=== PATIENT | male | born 1960 | race African-American/Black ===

== ENCOUNTER 2017-10-26 14:13 | Emergency (ER) | payer MEDICARE, MEDICAID ==
[~2017-10-26] VITALS: Ht 193 cm; Wt 81.0 kg
[2017-10-26] MEDS ORDERED: IBUPROFEN 800MG TABLET PO ONE (15:00)
[2017-10-26 15:20] LABS: HEMOGLOBIN. 11.6 g/dL (14.0-18.0); MEAN CORPUSCULAR HEMOGLOBIN 28.2 pg (28.0-32.0); MEAN CORPUSCULAR VOLUME 84.9 fL (80.0-94.0); MEAN PLATELET VOLUME 8.1 fl (7.4-10.4); PLATELET 105 x1000/uL (130-400); RED BLOOD CELL COUNT 4.12 mill/uL (4.7-6.1); RED CELL DISTRIBUTION WIDTH 19.4 % (11.6-14.6)
[2017-10-26 15:23] LABS: CHLORIDE 101 mEq/L (98-107)
[2017-10-26 15:24] LABS: PARTIAL THROMBOPLASTIN TIME 29.9 sec (23.4-31.0); PROTHROMBIN TIME 10.9 sec (9.4-11.6)
[2017-10-26 15:27] LABS: ETHANOL BLOOD < 10 mg/dL
[2017-10-26 15:42] LABS: PLATELET ESTIMATE DECREASED
[2017-10-26] MEDS ORDERED: MORPHINE SULFATE 10 MG/ML CPJ IM ONE (16:15)
[2017-10-26 16:51] VITALS: BP 124/54
== END 2017-10-26 16:59 | disposition home or self-care (01) ==
LOC: ER 14:27
DX: R55 Syncope and collapse (principal); M54.2 Cervicalgia; G89.29 Other chronic pain; F43.20 Adjustment disorder, unspecified; I12.0 Hypertensive chronic kidney disease with stage 5 chronic kidney disease or end stage renal disease; N18.6 End stage renal disease; Z99.2 Dependence on renal dialysis
CPT/HCPCS: 36415; 80053; 83690; 83880; 84484; 85025; 85610; 85730; 93005; 96372; 99285; G0482; J2270

== ENCOUNTER 2020-05-03 19:14 | Inpatient (IN) | payer MEDICARE, MEDICAID ==
[~2020-05-03] VITALS: Ht 185.4 cm; Wt 75.0 kg
[2020-05-03] MEDS ORDERED: AZITHROMYCIN 500 MG in DEXT 5% WATER 250 ML IV SCH (22:30)
[2020-05-03] MEDS ORDERED: ACETAMINOPHEN 325MG TABLET PO ONE (22:30)
[2020-05-03] MEDS ORDERED: CEFTRIAXONE 1 G PREMIX 50 ML IV ONE (22:30)
[2020-05-03 23:39] LABS: CHLORIDE 100 mEq/L (98-107)
[2020-05-04] MEDS ORDERED: ACETAMINOPHEN 325MG TABLET PO ONE (00:45)
[2020-05-04] MEDS ORDERED: KETOROLAC 15MG/ML VIAL IV ONE (00:45)
[2020-05-04 00:49] LABS: HEMATOCRIT. 35.8 % (42.0-52.0); HEMOGLOBIN. 11.6 g/dL (14.0-18.0); MEAN CORPUSCULAR HEMOGLOBIN 27.6 pg (28.0-32.0); MEAN CORPUSCULAR VOLUME 85.4 fL (80.0-94.0); RED BLOOD CELL COUNT 4.19 mill/uL (4.7-6.1)
[2020-05-04 00:50] LABS: MEAN PLATELET VOLUME 8.7 fl (7.4-10.4); PLATELET 106 x1000/uL (130-400)
[2020-05-04 01:00] LABS: PLATELET ESTIMATE SLIGHTLY DECREASED
[2020-05-04] MEDS ORDERED: IOHEXOL-350 100 ML BOTTLE ONE (01:51)
[2020-05-04] MEDS ORDERED: ONDANSETRON HCL 4MG/2ML INJ IV NR ×2 (02:45→04:15)
[2020-05-04] MEDS ORDERED: MORPHINE SULFATE 4 MG/ML CPJ (NOT FOR IM USE) IV NR (02:45)
[2020-05-04] MEDS ORDERED: CLONIDINE 0.1MG TABLET PO PRN (09:30)
[2020-05-04] MEDS ORDERED: DOCUSATE SODIUM 100MG CAPSULE PO PRN (09:30)
[2020-05-04] MEDS ORDERED: HYDROCODONE/ACETAMINOPHEN 5/325MG TABLET PO PRN (09:30)
[2020-05-04] MEDS ORDERED: ACETAMINOPHEN 325MG TABLET PO PRN (09:30)
[2020-05-04] MEDS ORDERED: MAGNESIUM/ALUMINUM HYDROXIDE/SIMETHICONE 30ML UDC PO PRN (09:30)
[2020-05-04] MEDS ORDERED: ONDANSETRON HCL 4MG/2ML INJ IV PRN (09:30)
[2020-05-04] MEDS ORDERED: ALBUTEROL 6.7GM HFA INHALER ORI PRN (09:30)
[2020-05-04] MEDS ORDERED: DILTIAZEM HCL 5MG/ML 5ML VIAL IV PRN (10:30)
[2020-05-04] MEDS ORDERED: ENOXAPARIN 30MG/0.3ML SYR SUBCUT SCH (12:00)
[2020-05-04] MEDS ORDERED: DEXAMETHASONE 4MG TABLET PO SCH (12:00)
[2020-05-04] MEDS ORDERED: PANTOPRAZOLE SODIUM 40 MG/VIAL IV SCH (12:00)
[2020-05-04 12:24] LABS: INR 1.1; PARTIAL THROMBOPLASTIN TIME 44.1 sec (23.4-31.0); PROTHROMBIN TIME 11.7 sec (9.6-11.0)
[2020-05-04] MEDS ORDERED: MORPHINE SULFATE 4 MG/ML CPJ (NOT FOR IM USE) IV PRN (20:00)
[2020-05-04] MEDS ORDERED: CEFTRIAXONE 1 G PREMIX 50 ML IV SCH (21:00)
[2020-05-04] MEDS ORDERED: AZITHROMYCIN 500 MG TABLET PO SCH (21:00)
[2020-05-05 01:00] VITALS: BP 115/77
[2020-05-05] MEDS ORDERED: ASCORBIC ACID 500 MG TABLET PO SCH (09:00)
[2020-05-06 09:10] LABS: ABSOLUTE LYMPHOCYTES 0.4 x10E3/uL (0.7-3.1); ABSOLUTE MONOCYTES 0.3 x10E3/uL (0.1-0.9); ABSOLUTE NEUTROPHILS 0.8 x10E3/uL (1.4-7.0); BASOPHILS 1 % (Not Estab.); HEMATOCRIT 33.3 % (37.5-51.0); HEMOGLOBIN 10.6 g/dL (13.0-17.7); IMMATURE GRANULOCYTES 1 % (Not Estab.); LYMPHOCYTES 25 % (Not Estab.); MEAN CORPUSCULAR HEMOGLOBIN 27.5 pg (26.6-33.0); MEAN CORPUSCULAR HGB CONC. 31.8 g/dL (31.5-35.7); MEAN CORPUSCULAR VOLUME 87 fL (79-97); MONOCYTES 20 % (Not Estab.); NEUTROPHILS 52 % (Not Estab.); PLATELETS 117 x10E3/uL (150-450); RBC 3.85 x10E6/uL (4.14-5.80); RED CELL DISTRIBUTION WIDTH 16.6 % (11.6-15.4); WBC 1.6 x10E3/uL (3.4-10.8)
[2020-05-06 10:06] LABS: % CD 3 POS. LYMPHOCYTES 69.2 % (57.5-86.2); % CD 4 POS. LYMPHOCYTES 31.4 % (30.8-58.5); % CD 8 POS. LYMPH 36.9 % (12.0-35.5); ABSOLUTE CD 3 277 /uL (622-2402); ABSOLUTE CD 4 HELPER 126 /uL (359-1519); ABSOLUTE CD 8 SUPPRESSOR 148 /uL (109-897); CD4/CD8 RATIO 0.85 (0.92-3.72)
[2020-05-09 08:09] LABS: *HIV-1 RNA BY PCR 50 copies/mL (.)
== END 2020-05-12 23:43 | disposition left against medical advice (07) | DRG 871 ==
LOC: ER 19:14 → MICUSO 05-04 00:42
PROVIDERS: ADMIT Internal Medicine; ATTEND Internal Medicine
PROC: 5A1D70Z Performance of Urinary Filtration, Intermittent, Less than 6 Hours Per Day (ICD-10-PCS; principal; 2020-05-04)
DX: A41.89 Other specified sepsis (principal); J96.00 Acute respiratory failure, unspecified whether with hypoxia or hypercapnia; N18.6 End stage renal disease; U07.1 COVID-19; J12.82 Pneumonia due to coronavirus disease 2019; E44.0 Moderate protein-calorie malnutrition; I12.0 Hypertensive chronic kidney disease with stage 5 chronic kidney disease or end stage renal disease; N25.81 Secondary hyperparathyroidism of renal origin; D61.818 Other pancytopenia; Z21 Asymptomatic human immunodeficiency virus [HIV] infection status; I48.91 Unspecified atrial fibrillation; M54.2 Cervicalgia; R74.01 Elevation of levels of liver transaminase levels; D63.8 Anemia in other chronic diseases classified elsewhere; G89.29 Other chronic pain; Z82.49 Family history of ischemic heart disease and other diseases of the circulatory system; Z99.2 Dependence on renal dialysis; Z88.1 Allergy status to other antibiotic agents; Z68.21 Body mass index [BMI] 21.0-21.9, adult; Z79.899 Other long term (current) drug therapy
CPT/HCPCS: 36415; 71045; 71275; 80053; 83605; 83880; 84145; 84484; 85025; 86359; 86360; 87536; 93005; 99285; C9113; C9803; J0456; J0696; J1650; J1885; J2270; J2405; J7060; J8540; Q9967; U0003